=== PATIENT | female | born 1970 | race African-American/Black ===

== ENCOUNTER 2024-09-26 14:54 | Inpatient (IN) | payer OTHER ==
[2024-09-26] MEDS ORDERED: guaiFENesin 600 MG TABLET.ER (FP) PO PRN (15:27)
[2024-09-26] MEDS ORDERED: LOPERAMIDE HCL 2 MG CAPSULE PO PRN (15:27)
[2024-09-26] MEDS ORDERED: IBUPROFEN 400 MG TABLET (FP) PO PRN (15:27)
[2024-09-26] MEDS ORDERED: NICOTINE POLACRILEX 2 MG GUM BUC PRN (15:27)
[2024-09-26] MEDS ORDERED: ONDANSETRON *ODT* 4 MG TABLET SL PRN (15:27)
[2024-09-26] MEDS ORDERED: MAGNESIUM HYDROX 2400MG/30ML ORAL SUSPENSION 30 ML CUP PO PRN (15:27)
[2024-09-26] MEDS ORDERED: MAG HYDROX/AL HYDROX/SIMETH 30 ML UNIT-DOSE CUP PO PRN (15:27)
[2024-09-26] MEDS ORDERED: IBUPROFEN 600 MG TABLET (FP) PO PRN (15:27)
[2024-09-26] MEDS ORDERED: NALOXONE (NARCAN) HCL 4 MG/0.1 ML SPRAY NS PRN (15:27)
[2024-09-26] MEDS ORDERED: BENZOCAINE/MENTHOL (CHLORASEPTIC ) LOZENGE MM PRN (15:27)
[2024-09-26] MEDS ORDERED: DICYCLOMINE HCL 10 MG CAPSULE PO PRN (15:27)
[2024-09-26] MEDS ORDERED: BISMUTH SUBSALICYLATE 524 MG/30 ML PO PRN (15:27)
[2024-09-26] MEDS ORDERED: hydrOXYzine PAMOATE 25 MG CAPSULE (FP) PO PRN (15:27)
[2024-09-26] MEDS ORDERED: BENZONATATE 200 MG CAPSULE PO PRN (15:27)
[2024-09-26] MEDS ORDERED: POLYETHYLENE GLYCOL (HEALTHYLAX) 3350 17 GM PACKET PO PRN (15:27)
[2024-09-26 15:36] VITALS: BMI 26.4
[2024-09-26] MEDS: methaDONE HCL 10 MG TABLET PO ONE (18:38)
[2024-09-26] MEDS ORDERED: methaDONE HCL 10 MG TABLET (FOR DETOX USE ONLY) ONE (18:40)
[2024-09-26] MEDS: cloNIDine HCL 0.1 MG TABLET PO SCH (18:44)
[2024-09-26] MEDS ORDERED: cloNIDine HCL 0.1 MG TABLET ONE (18:45)
[2024-09-26] MEDS: APIXABAN 5 MG TABLET PO SCH (19:11)
[2024-09-26] MEDS: SPIRONOLACTONE 25 MG TABLET PO SCH (19:11)
[2024-09-26] MEDS: LOSARTAN POTASSIUM 25 MG TABLET PO SCH (19:11)
[2024-09-26] MEDS: EMPAGLIFLOZIN (JARDIANCE) 10 MG TABLET PO SCH (19:59)
[2024-09-26] MEDS: THIAMINE 100 MG TABLET PO SCH (22:13)
[2024-09-26] MEDS: ATORVASTATIN CA 80 MG TABLET (FP) PO SCH (22:13)
[2024-09-26] MEDS: MELATONIN 5 MG TABLETS PO SCH (22:13)
[2024-09-26] MEDS: CARVEDILOL 3.125 MG TABLET (FP) PO SCH (22:13)
[2024-09-27] MEDS: ACETAMINOPHEN 325 MG TABLET (FP) PO PRN (04:12)
[2024-09-27] MEDS: methaDONE HCL 10 MG TABLET PO ONE (09:19)
[2024-09-27] MEDS: PRENATAL VITAMINS W/ FOLIC ACID TABLET (FP) PO SCH (09:20)
[2024-09-27] MEDS ORDERED: methaDONE HCL 10 MG TABLET PO ONE ×2 (10:00→11:00)
[2024-09-27] MEDS ORDERED: NICOTINE 21 MG/24 HOURS TOPICAL PATCH TD SCH (10:00)
[2024-09-27] MEDS ORDERED: APIXABAN 5 MG TABLET PO SCH (10:00)
[2024-09-27] MEDS: NICOTINE 14 MG/24 HOURS TOPICAL PATCH TD SCH (13:02)
[2024-09-27 17:30] LABS: HEMATOCRIT 39.3 % (34.1-44.9); HEMOGLOBIN 11.6 g/dL (11.2-15.7); MCHC 29.5 g/dl (32.2-35.5); MEAN CELL VOLUME 90.6 fl (79.4-94.8); MEAN PLT VOLUME 10.5 fl (9.4-12.3); PLATELET COUNT 303 x10^3/uL (182-369); RDW 16.3 % (12.3-16.6)
[2024-09-27 17:36] LABS: CHLORIDE 100 mmol/L (98-107); POTASSIUM 3.6 mmol/L (3.5-5.1); SODIUM 136 mmol/L (136-145)
[2024-09-27 17:53] LABS: CALCIUM 8.7 mg/dL (8.5-10.1)
[2024-09-27 17:54] LABS: ALBUMIN 2.6 g/dl (3.4-5.0); ANION GAP 8 mmol/L (4-13); BLOOD UREA NITROGEN 12.5 mg/dL (7-18); CO2 28 mmol/L (21-32); GLUCOSE,RANDOM 92 mg/dL (74-106)
[2024-09-27 17:55] LABS: SGPT/ALT 20 U/L (13-61)
[2024-09-27 17:57] LABS: BILIRUBIN,TOTAL 0.8 mg/dL (0.2-1); CREATININE 1.1 mg/dL (0.55-1.3); SGOT/AST 26 U/L (15-37); TOT PROT 6.4 g/dl (6.4-8.2)
[2024-09-27 17:58] LABS: ALK PHOS 93 U/L (45-117)
[2024-09-27] MEDS: METHOCARBAMOL 500 MG TABLET PO PRN (18:25)
[2024-09-27] MEDS: diazePAM 5 MG TABLET PO PRN (19:25)
[2024-09-28] MEDS: cloNIDine HCL 0.1 MG TABLET PO PRN (02:19)
[2024-09-28] MEDS: methaDONE HCL 10 MG TABLET PO SCH (06:25)
[2024-09-28] MEDS: EMPAGLIFLOZIN (JARDIANCE) 10 MG TABLET PO SCH (06:25)
[2024-09-28] MEDS ORDERED: methaDONE HCL 10 MG TABLET PO ONE (10:00)
[2024-09-28] MEDS ORDERED: ALBUTEROL SO4 0.083% IH SOL 2.5 MG/3 ML VIAL.NEB. NEB ONE (10:49)
[2024-09-28] MEDS: ALBUTEROL SO4 0.083% IH SOL 2.5 MG/3 ML VIAL.NEB. NEB PRN (11:06)
[2024-09-28] MEDS: methaDONE HCL 10 MG TABLET PO ONE (11:08)
[2024-09-29] MEDS: cloNIDine HCL 0.1 MG TABLET PO ONE (03:42)
[2024-09-29] MEDS ORDERED: methaDONE HCL 10 MG TABLET PO ONE (10:00)
[2024-09-29] MEDS: AMOX TR/POT CLAV 875MG/125MG TABLETS (FP) PO SCH (12:36)
[2024-09-29] MEDS: diazePAM 5 MG TABLET PO PRN (12:36)
[2024-09-30] MEDS ORDERED: methaDONE HCL 10 MG TABLET PO ONE (10:00)
[2024-09-30 18:18] VITALS: TEMP 97.9
[2024-09-30] MEDS: diazePAM 5 MG TABLET PO ONE (20:42)
[2024-09-30 21:48] VITALS: BP 146/97; PULSE 85; RESP 16
[2024-09-30] MEDS: MELATONIN 5 MG TABLETS PO ONE (22:49)
[2024-10-01] MEDS ORDERED: methaDONE HCL 10 MG TABLET PO ONE (10:00)
== END 2024-10-01 07:11 | disposition short-term general hospital (02) | DRG 773 ==
LOC: YASAS 14:54 → Y3N 17:14 → Y6N 09-28 18:59
PROVIDERS: ADMIT Allergy & Immunology; ATTEND Allergy & Immunology
PROC: HZ2ZZZZ Detoxification Services for Substance Abuse Treatment (ICD-10-PCS; principal; 2024-09-26)
DX: F11.23 Opioid dependence with withdrawal (principal); F14.20 Cocaine dependence, uncomplicated; F17.210 Nicotine dependence, cigarettes, uncomplicated; F31.9 Bipolar disorder, unspecified; F41.9 Anxiety disorder, unspecified; I13.0 Hypertensive heart and chronic kidney disease with heart failure and stage 1 through stage 4 chronic kidney disease, or unspecified chronic kidney disease; E11.22 Type 2 diabetes mellitus with diabetic chronic kidney disease; N18.9 Chronic kidney disease, unspecified; I50.9 Heart failure, unspecified; Z79.84 Long term (current) use of oral hypoglycemic drugs; E78.2 Mixed hyperlipidemia; J90 Pleural effusion, not elsewhere classified; I73.9 Peripheral vascular disease, unspecified; Z79.01 Long term (current) use of anticoagulants; Z86.11 Personal history of tuberculosis; Z87.11 Personal history of peptic ulcer disease; Z89.612 Acquired absence of left leg above knee; Z89.611 Acquired absence of right leg above knee; Z99.3 Dependence on wheelchair
CPT/HCPCS: 36415; 71046-TC-FY; 80053; 80305; 80307; 82962; 85027; 86593; 86780; 93005; 93010; 94640

== ENCOUNTER 2024-10-01 01:18 | Inpatient (IN) | payer OTHER ==
[2024-10-01 01:29] VITALS: TEMP 98.8; BMI 24.4
[2024-10-01 01:55] LABS: ABSOLUTE IMMATURE GRANULOCYTES 0.02 x10^3/uL (0.0-0.031); BASOPHILS # 0.03 x10^3/uL (0.01-0.08); HEMATOCRIT 39.2 % (34.1-44.9); HEMOGLOBIN 11.9 g/dL (11.2-15.7); MCHC 30.4 g/dl (32.2-35.5); MEAN CELL VOLUME 89.7 fl (79.4-94.8); MEAN PLT VOLUME 9.8 fl (9.4-12.3); MONOCYTE # 0.33 x10^3/uL (0.24-0.86); MONOCYTE % 5.8 % (4.7-12.5); PLATELET COUNT 275 x10^3/uL (182-369); RDW 16.6 % (12.3-16.6); VENOUS BASE EXCESS 0.3 mmol/L (-2-2); VENOUS O2 SATURATION 82.2 % (70-80); VENOUS PCO2 44.1 mmHg (38-52); VENOUS PH 7.383 (7.310-7.410)
[2024-10-01 02:15] LABS: POTASSIUM 4.7 mmol/L (3.5-5.1)
[2024-10-01 02:17] LABS: ALBUMIN 2.8 g/dl (3.4-5.0); CALCIUM 9.4 mg/dL (8.5-10.1)
[2024-10-01 02:18] LABS: BLOOD UREA NITROGEN 23.2 mg/dL (7-18); MAGNESIUM 2.2 mg/dL (1.8-2.4)
[2024-10-01 02:21] LABS: CREATININE 1.2 mg/dL (0.55-1.3)
[2024-10-01 02:22] LABS: BILIRUBIN,TOTAL 0.8 mg/dL (0.2-1)
[2024-10-01 03:09] LABS: INR 2.07 (0.83-1.09); PROTHROMBIN TIME (PATIENT) 22.8 SEC (9.7-13.0)
[2024-10-01 03:11] LABS: ACTIVATED PTT 38.3 SECONDS (25.2-36.5)
[2024-10-01] MEDS ORDERED: FUROSEMIDE 40 MG/4 ML INJECTABLE VIAL ONE ×3 (03:21→11:40)
[2024-10-01] MEDS: FUROSEMIDE 40 MG/4 ML INJECTABLE VIAL IVPUSH ONE ×2 (03:23→11:42)
[2024-10-01 03:24] LABS: CHLORIDE 102 mmol/L (98-107); SODIUM 135 mmol/L (136-145)
[2024-10-01 03:26] LABS: BLOOD UREA NITROGEN 23.3 mg/dL (7-18); CALCIUM 9.4 mg/dL (8.5-10.1); CO2 28 mmol/L (21-32); GLUCOSE,RANDOM 79 mg/dL (74-106)
[2024-10-01 03:30] LABS: CREATININE 1.3 mg/dL (0.55-1.3)
[2024-10-01 03:31] LABS: BILIRUBIN,TOTAL 0.8 mg/dL (0.2-1); TOT PROT 8.3 g/dl (6.4-8.2)
[2024-10-01 03:32] LABS: ALK PHOS 117 U/L (45-117)
[2024-10-01 03:35] LABS: ANION GAP 6 mmol/L (4-13); POTASSIUM 8.8 mmol/L (3.5-5.1); SGOT/AST 142 U/L (15-37); SGPT/ALT 32 U/L (13-61)
[2024-10-01 03:49] LABS: N-TERMINAL BNP 23819.3 pg/ml (5-125)
[2024-10-01] MEDS ORDERED: diazePAM 5 MG TABLET PO PRN (06:27)
[2024-10-01] MEDS: FUROSEMIDE 40 MG/4 ML INJECTABLE VIAL IVPUSH SCH (06:36)
[2024-10-01] MEDS ORDERED: AMOX TR/POT CLAV 875MG/125MG TABLETS (FP) PO SCH ×2 (08:00→10:00)
[2024-10-01 08:40] LABS: ABSOLUTE IMMATURE GRANULOCYTES 0.01 x10^3/uL (0.0-0.031); BASOPHILS # 0.03 x10^3/uL (0.01-0.08); HEMATOCRIT 41.4 % (34.1-44.9); HEMOGLOBIN 12.8 g/dL (11.2-15.7); MCHC 30.9 g/dl (32.2-35.5); MEAN PLT VOLUME 9.4 fl (9.4-12.3); MONOCYTE # 0.28 x10^3/uL (0.24-0.86); MONOCYTE % 4.9 % (4.7-12.5); PLATELET COUNT 305 x10^3/uL (182-369); RDW 16.3 % (12.3-16.6)
[2024-10-01 08:44] LABS: POTASSIUM 3.8 mmol/L (3.5-5.1)
[2024-10-01 08:49] LABS: BLOOD UREA NITROGEN 21.3 mg/dL (7-18)
[2024-10-01 08:50] LABS: CALCIUM 9.5 mg/dL (8.5-10.1); MAGNESIUM 1.7 mg/dL (1.8-2.4)
[2024-10-01 08:53] LABS: CREATININE 1.1 mg/dL (0.55-1.3); PHOSPHOROUS 4.2 mg/dL (2.5-4.9)
[2024-10-01 08:54] LABS: BILIRUBIN,TOTAL 0.9 mg/dL (0.2-1); TOT PROT 7.3 g/dl (6.4-8.2)
[2024-10-01 09:23] VITALS: BP 154/129; PULSE 83; RESP 21
[2024-10-01] MEDS ORDERED: CARVEDILOL 3.125 MG TABLET (FP) ONE (09:27)
[2024-10-01] MEDS ORDERED: NICOTINE 14 MG/24 HOURS TOPICAL PATCH TD ONE (09:27)
[2024-10-01] MEDS: CARVEDILOL 3.125 MG TABLET (FP) PO SCH (09:30)
[2024-10-01] MEDS: NICOTINE 14 MG/24 HOURS TOPICAL PATCH TD SCH (09:31)
[2024-10-01] MEDS ORDERED: EMPAGLIFLOZIN (JARDIANCE) 10 MG TABLET PO SCH (10:00)
[2024-10-01] MEDS ORDERED: APIXABAN 5 MG TABLET PO SCH (10:00)
[2024-10-01] MEDS ORDERED: ENOXAPARIN NA (PORCINE) 40 MG/0.4 ML DISP.SYRIN SQ SCH (10:00)
[2024-10-01] MEDS ORDERED: APIXABAN 5 MG TABLET ONE (10:41)
[2024-10-01] MEDS: APIXABAN 5 MG TABLET PO SCH (11:07)
[2024-10-01] MEDS: EMPAGLIFLOZIN (JARDIANCE) 10 MG TABLET PO SCH (12:11)
[2024-10-01] MEDS ORDERED: ATORVASTATIN CA 80 MG TABLET (FP) PO SCH (22:00)
== END 2024-10-01 15:30 | disposition left against medical advice (07) | DRG 194 ==
LOC: JER 01:18 → JERBED 03:17
PROVIDERS: ADMIT Internal Medicine; ATTEND Nurse Practitioner Family
DX: I11.0 Hypertensive heart disease with heart failure (principal); I50.23 Acute on chronic systolic (congestive) heart failure; E11.9 Type 2 diabetes mellitus without complications; F31.9 Bipolar disorder, unspecified; F41.9 Anxiety disorder, unspecified; F11.20 Opioid dependence, uncomplicated; R94.31 Abnormal electrocardiogram [ECG] [EKG]; F17.210 Nicotine dependence, cigarettes, uncomplicated; I73.9 Peripheral vascular disease, unspecified
CPT/HCPCS: 0241U-QW; 36415; 71045-TC-FY; 80053; 82803; 82962; 83036; 83735; 83880; 84100; 84484; 85025; 85610; 85730; 86850; 86900; 86901; 93005; 93010; 93306-TC; 99285-25